=== PATIENT | male | born 1950 | race Caucasian/White ===

== ENCOUNTER 2025-03-31 21:46 | Inpatient (IN) | payer OTHER, MEDICARE ==
[~2025-03-31] VITALS: Ht 177.8 cm; Wt 122.5 kg
[2025-03-31 21:53] VITALS: O2SAT 99
[2025-03-31 23:32] LABS: BASOPHILS % 1.2 % (0.0-2.0); EOSINOPHILS % 10.5 % (0.0-5.0); HEMATOCRIT. 40.7 % (42.0-52.0); HEMOGLOBIN. 14.0 g/dL (14.0-18.0); LYMPHOCYTES % 21.4 % (20.0-50.0); MEAN PLATELET VOLUME 8.2 fl (7.4-10.4); MONOCYTES % 8.8 % (2.0-8.0); NEUTROPHILS % 58.1 % (40.0-76.0); PLATELET 267 x1000/uL (130-400); RED BLOOD CELL COUNT 4.34 mill/uL (4.7-6.1); RED CELL DISTRIBUTION WIDTH 13.7 % (11.6-14.6)
[2025-03-31 23:48] LABS: CREATININE 0.6 mg/dL (0.6-1.3); UREA NITROGEN BLOOD 10 mg/dL (9-23)
[2025-04-01 00:22] LABS: INR > 10.0
[2025-04-01] MEDS: PHYTONADIONE 10 MG in DEXTROSE 5% WATER 50 ML IV ONE (00:55)
[2025-04-01] MEDS: SODIUM CHLORIDE 0.9% (SEPSIS BOLUS) IV ONE (00:59)
[2025-04-01 01:06] LABS: CLARITY URINE CLOUDY (CLEAR); COLOR URINE RED (YELLOW); GLUCOSE URINE NEGATIVE (NEGATIVE); KETONES URINE NEGATIVE (NEGATIVE); LEUKOCYTE ESTERASE URINE TRACE (NEGATIVE); NITRITE URINE NEGATIVE (NEGATIVE); OCCULT BLOOD URINE 3+ (NEGATIVE); PH URINE 6.5 (4.5-8.0); PROTEIN URINE 2+ (NEGATIVE); SPECIFIC GRAVITY URINE 1.007 (1.005-1.030); UROBILINOGEN URINE 0.2 E.U./dL (0.2-1.0)
[2025-04-01] MEDS: HUMAN-LANS PROTHROMBIN CPLX (PCC) 1000 UNITS VIAL IV NR (01:19)
[2025-04-01] MEDS: CEFTRIAXONE 1GM/50ML 50 ML IV ONE (01:27)
[2025-04-01 02:02] LABS: BACTERIA URINE 1+; RBC URINE TNTC /hpf (0-2); SQUAMOUS EPITHELIAL CELL URINE NONE SEEN /lpf (RARE/1+)
[2025-04-01] MEDS ORDERED: ACETAMINOPHEN 650MG/20.3ML UDC GT PRN (02:15)
[2025-04-01] MEDS ORDERED: ONDANSETRON HCL 4MG/2ML INJ IV PRN (02:15)
[2025-04-01] MEDS ORDERED: DOCUSATE SODIUM 100MG CAPSULE PO PRN (02:15)
[2025-04-01] MEDS ORDERED: ACETAMINOPHEN 325MG TABLET PO PRN (02:15)
[2025-04-01] MEDS ORDERED: IPRATROPIUM/ALBUTEROL 0.5-3(2.5)MG/3ML NEB HHN PRN (02:15)
[2025-04-01] MEDS ORDERED: GUAIFENESIN 200MG/10ML SUGAR FREE UDC PO PRN (02:15)
[2025-04-01] MEDS ORDERED: DILT120C94 PO (02:58)
[2025-04-01] MEDS ORDERED: METO-539 PO (02:58)
[2025-04-01] MEDS ORDERED: WARF4TAB71 PO (02:58)
[2025-04-01] MEDS ORDERED: TIMO5DRO45 EACHEYE (02:58)
[2025-04-01] MEDS ORDERED: ATOR-388 PO (02:58)
[2025-04-01] MEDS ORDERED: LATA2.5D7 EACHEYE (02:58)
[2025-04-01] MEDS ORDERED: INSU100I43 SQ (02:58)
[2025-04-01] MEDS ORDERED: AMI2 PO (02:58)
[2025-04-01 03:03] VITALS: BP 172/94; PULSE 96; RESP 20; TEMP 36.696
[2025-04-01 03:27] LABS: TROPONIN I HIGH SENSITIVITY 4 ng/L (3.0-53)
[2025-04-01] MEDS: PANTOPRAZOLE SODIUM 40 MG/VIAL IV SCH (04:07)
[2025-04-01] MEDS: SODIUM CHLORIDE 0.9% 1,000 ML IV SCH (04:08)
[2025-04-01 04:53] VITALS: BP 127/78; PULSE 103; RESP 20; TEMP 37.2; O2SAT 96
[2025-04-01] MEDS ORDERED: CLONIDINE 0.1MG TABLET PO SCH (06:00)
[2025-04-01] MEDS: METOPROLOL SUCCINATE 50MG ER TABLET PO SCH (06:20)
[2025-04-01 08:00] VITALS: BP 144/78; PULSE 89; RESP 18; TEMP 35.6; O2SAT 95
[2025-04-01 11:57] LABS: INR 1.2
[2025-04-01 12:00] VITALS: BP 144/78; PULSE 89; RESP 18; TEMP 35.6; O2SAT 95
[2025-04-01 12:11] LABS: TROPONIN I HIGH SENSITIVITY 13 ng/L (3.0-53)
[2025-04-01 12:15] LABS: PHOSPHORUS 2.7 mg/dL (2.5-4.9)
[2025-04-01 14:37] LABS: TRIGLYCERIDE 90.0 mg/dL (0-150)
[2025-04-01 14:38] LABS: LDL CHOLESTEROL 54.0 mg/dL (5-100)
[2025-04-01 16:00] VITALS: BP 150/81; PULSE 90; RESP 18; TEMP 36.4; O2SAT 98
[2025-04-01 20:00] VITALS: BP 126/67; PULSE 101; RESP 19; TEMP 36.1; O2SAT 96
[2025-04-01] MEDS: DILTIAZEM HCL 30MG TABLET PO SCH (22:21)
[2025-04-01 22:49] LABS: TROPONIN I HIGH SENSITIVITY 251 ng/L (3.0-53)
[2025-04-02] VITALS: BP 122/86; PULSE 104; RESP 19; TEMP 36.2; O2SAT 96
[2025-04-02] MEDS: MAGNESIUM 2 G PREMIX 50 ML IV NR (00:04)
[2025-04-02 04:00] VITALS: BP 138/80; PULSE 96; RESP 20; TEMP 36.5; O2SAT 96
[2025-04-02 06:45] LABS: CREATININE 0.6 mg/dL (0.6-1.3); UREA NITROGEN BLOOD 10 mg/dL (9-23)
[2025-04-02 06:46] LABS: BASOPHILS % 0.8 % (0.0-2.0); EOSINOPHILS % 10.2 % (0.0-5.0); HEMATOCRIT. 40.1 % (42.0-52.0); HEMOGLOBIN. 13.7 g/dL (14.0-18.0); INR 1.1; LYMPHOCYTES % 21.7 % (20.0-50.0); MONOCYTES % 9.6 % (2.0-8.0); NEUTROPHILS % 57.7 % (40.0-76.0); RED BLOOD CELL COUNT 4.25 mill/uL (4.7-6.1); RED CELL DISTRIBUTION WIDTH 13.4 % (11.6-14.6)
[2025-04-02 06:52] LABS: T4 FREE 1.66 ng/dL (0.89-1.76)
[2025-04-02 07:15] LABS: TROPONIN I HIGH SENSITIVITY 540 ng/L (3.0-53)
[2025-04-02] MEDS: ENOXAPARIN 120MG/0.8ML SYR SUBCUT SCH (07:31)
[2025-04-02 08:00] VITALS: BP 128/77; PULSE 90; RESP 20; TEMP 36.4; O2SAT 96
[2025-04-02] MEDS ORDERED: METOPROLOL TARTRATE 5MG/5ML VIAL IV PRN (10:30)
[2025-04-02 12:00] VITALS: BP 150/76; PULSE 102; RESP 18; TEMP 36.5; O2SAT 98
[2025-04-02] MEDS ORDERED: IOHEXOL-350 100 ML BOTTLE ONE ×2 (13:08→15:05)
[2025-04-02] MEDS: AMIODARONE 200MG TABLET PO SCH (14:37)
[2025-04-02] MEDS: METOPROLOL TARTRATE 25MG TABLET PO SCH (14:38)
[2025-04-02] MEDS: DILTIAZEM HCL 60MG TABLET PO SCH (14:40)
[2025-04-02 16:00] VITALS: BP 140/69; PULSE 83; RESP 18; TEMP 28.3; O2SAT 98
[2025-04-02 18:20] LABS: TROPONIN I HIGH SENSITIVITY 898 ng/L (3.0-53)
[2025-04-02 20:00] VITALS: BP 131/63; PULSE 80; RESP 18; TEMP 36.5; O2SAT 99
[2025-04-03] VITALS (7 sets, daily range): BP systolic 126–150; BP diastolic 57–78; PULSE 77–94; RESP 18–20; TEMP 36.2–36.8; O2SAT 97–99
[2025-04-03 01:47] LABS: CREATININE 0.7 mg/dL (0.6-1.3); UREA NITROGEN BLOOD 10 mg/dL (9-23)
[2025-04-03 02:21] LABS: TROPONIN I HIGH SENSITIVITY 904 ng/L (3.0-53)
[2025-04-03 08:18] LABS: BASOPHILS % 1.1 % (0.0-2.0); EOSINOPHILS % 10.6 % (0.0-5.0); HEMATOCRIT. 36.2 % (42.0-52.0); HEMOGLOBIN. 12.2 g/dL (14.0-18.0); LYMPHOCYTES % 22.7 % (20.0-50.0); MEAN PLATELET VOLUME 8.0 fl (7.4-10.4); MONOCYTES % 10.0 % (2.0-8.0); NEUTROPHILS % 55.6 % (40.0-76.0); PLATELET 184 x1000/uL (130-400); RED BLOOD CELL COUNT 3.82 mill/uL (4.7-6.1); RED CELL DISTRIBUTION WIDTH 13.8 % (11.6-14.6)
[2025-04-03 08:22] LABS: CREATININE 0.5 mg/dL (0.6-1.3)
[2025-04-03 08:23] LABS: UREA NITROGEN BLOOD 7 mg/dL (9-23)
[2025-04-03 08:32] LABS: TROPONIN I HIGH SENSITIVITY 597 ng/L (3.0-53)
[2025-04-03] MEDS: MAGNESIUM 2 G PREMIX 50 ML IV SCH (09:58)
[2025-04-03] MEDS: POTASSIUM CHLORIDE 20MEQ TABLET SR PO NR (09:59)
[2025-04-03] MEDS: ASPIRIN 81MG TABLET PO SCH (17:09)
== END 2025-04-03 22:15 | disposition short-term general hospital (02) | DRG 695 ==
LOC: ER 21:46 → 8WST 04-01 01:04 → EDBEDREQTM 04-01 01:12 → EDBEDREQDT 04-01 01:12 → EDBEDREQSVC 04-01 01:12 → EDBEDREQ 04-01 01:12 → ENRESERV 04-01 01:30
PROVIDERS: ADMIT Hospitalist; ATTEND Hospitalist
PROC: 02HV33Z Insertion of Infusion Device into Superior Vena Cava, Percutaneous Approach (ICD-10-PCS; principal; 2025-04-02)
PROC: B548ZZA Ultrasonography of Superior Vena Cava, Guidance (ICD-10-PCS; 2025-04-02)
DX: R31.0 Gross hematuria (principal); I21.4 Non-ST elevation (NSTEMI) myocardial infarction; Z79.01 Long term (current) use of anticoagulants; T45.515A Adverse effect of anticoagulants, initial encounter; I10 Essential (primary) hypertension; E78.5 Hyperlipidemia, unspecified; I48.91 Unspecified atrial fibrillation; S30.13XA Contusion of flank (latus) region, initial encounter; I25.10 Atherosclerotic heart disease of native coronary artery without angina pectoris; R79.1 Abnormal coagulation profile; Z86.73 Personal history of transient ischemic attack (TIA), and cerebral infarction without residual deficits; Z87.891 Personal history of nicotine dependence; Z79.899 Other long term (current) drug therapy; Z79.82 Long term (current) use of aspirin; X58.XXXA Exposure to other specified factors, initial encounter; Y93.89 Activity, other specified; Y92.89 Other specified places as the place of occurrence of the external cause; Y99.8 Other external cause status
CPT/HCPCS: 36415; 36573; 75571; 76770; 77001; 80048; 80061; 81003; 82553; 83036; 83605; 83735; 84100; 84439; 84443; 84481; 84484; 85025; 93005; 93306; 93880; 93970; 96365; 97163; 97167; 99291; C1725; C9132; J0696; J1650; J2470; J3430; J3475; J7030; J7060; Q9967